=== PATIENT | male | born 1955 | race Caucasian/White ===

== ENCOUNTER 2018-01-18 06:26 | Day surgery (SDC) | payer BC, OTHER ==
[2018-01-18] MEDS ORDERED: Lactated Ringers 1,000 ML IV SCH ×2 (07:38→14:12)
[2018-01-18] MEDS ORDERED: Propofol 200 MG/20 ML SDV IV ONE (08:00)
--- NOTE | 2018-01-18 08:23 | PCM.OPNOTE ---
- General Post-Op/Procedure Note Date of Surgery/Procedure: 01/18/18 Operative Procedure(s): c scope with biospy Findings: transverse colon polyp Pre Op Diagnosis: screening c scope Post-Op Diagnosis: transverse colon polyp Anesthesia Technique: MAC Primary Surgeon: True Dao Anesthesia Provider: Ian Toussaint Pathology: transverse colon polyp Complications: None Condition: Good Free Text/Narrative:: see dictation
--- NOTE | 2018-01-18 08:36 | OR ---
DATE OF OPERATION: 01/18/2018 SURGEON: True Dao MD PROCEDURE PERFORMED: Colonoscopy. PREOPERATIVE DIAGNOSIS: Need for screening C-scope. POSTOPERATIVE DIAGNOSIS: Transverse colon polyp. INDICATIONS FOR PROCEDURE: This is a 62-year-old white male, referred for screening colonoscopy. He was offered and accepted same. DESCRIPTION OF OPERATION: After an excellent IV sedation was administered, digital rectal exam was performed. No marked abnormality was noted. Flexible colonoscope was inserted and advanced without difficulty to the cecum. Prep was excellent. The following findings were noted: Ascending colon, unremarkable. Transverse colon, a small hyperplastic-appearing lesion, biopsied with cold biopsy forceps and sent for permanent. Descending colon, unremarkable. Sigmoid, unremarkable. Rectum, unremarkable. Colon was deflated as the scope was removed. The patient tolerated the procedure well and was taken to the recovery room in good condition. Results by letter. /[id number] /MODL
== END 2018-01-18 09:15 | disposition home or self-care (01) ==
LOC: FB.SDS 06:26
PROVIDERS: ATTEND Surgery
DX: Z12.11 Encounter for screening for malignant neoplasm of colon (principal); D12.3 Benign neoplasm of transverse colon; I10 Essential (primary) hypertension; E11.9 Type 2 diabetes mellitus without complications; E66.01 Morbid (severe) obesity due to excess calories; Z68.34 Body mass index [BMI] 34.0-34.9, adult; Z79.84 Long term (current) use of oral hypoglycemic drugs; Z79.899 Other long term (current) drug therapy
CPT/HCPCS: 45380; 82962; 88305; J2704; J7120

== ENCOUNTER 2019-09-18 20:54 | Emergency (ER) | payer BC ==
[2019-09-18] MEDS ORDERED: Acetaminophen/HYDROcodone 325-5 MG Tab PO ONE (20:55)
--- NOTE | 2019-09-18 21:56 | EDM.PDOC ---
ED HPI GENERAL MEDICAL PROBLEM - General Chief Complaint: Flank Pain Stated Complaint: right lower back pain Time Seen by Provider: 09/18/19 21:52 Source of Information: Reports: Patient History Limitations: Reports: No Limitations - History of Present Illness INITIAL COMMENTS - FREE TEXT/NARRATIVE: Patient developed right lower back pain @1300 today associated with nausea and vomiting. He denies injury, prior h/o kidney stones or AAA. Pain worsened throughout the day, then significantly improved en route to the hospital. Onset Date: 09/18/19 Onset Time: 13:00 Location: Reports: Back Severity: Moderate right flank Pain Score (Numeric/FACES): 6 - Related Data Allergies Allergy/AdvReac Type Severity Reaction Status Date / Time No Known Allergies Allergy Verified 09/18/19 21:00 Home Meds: Home Meds Gabapentin [Neurontin] 300 mg PO BID 01/15/18 [History] Metoprolol Tartrate 100 mg PO DAILY 01/15/18 [History] Simvastatin 10 mg PO BEDTIME 01/15/18 [History] sitaGLIPtin Phos/Metformin HCl [Janumet 50-1,000 MG] 1 each PO BID 01/15/18 [ History] Acetaminophen/HYDROcodone [[place] 325-5 MG] 1 - 2 tab PO Q6H PRN #12 tab [Rx] Celecoxib 200 mg PO DAILY 09/18/19 [History] Tamsulosin [Tamsulosin 24 Hr] 0.4 mg PO DAILY #15 cap.er 09/18/19 [Rx] Past Medical History HEENT History: Reports: Impaired Vision, Other (See Below) Other HEENT History: 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 Cardiovascular History: Reports: High Cholesterol, Hypertension. Denies: Aneurysm Respiratory History: Reports: None Gastrointestinal History: Reports: None Genitourinary History: Reports: None CORRECTIONAL COOK History: Reports: None Neurological History: Reports: None Psychiatric History: Reports: Addiction, Other (See Below) Other Psychiatric History: ALCOHOLISM. CLAUSTROPHOBIA IF LAYS ON BACK. Endocrine/Metabolic History: Reports: Diabetes, Type II Dermatologic History: Reports: Other (See Below) Other Dermatologic History: CREAM USED FOR KELOIDS OF LEFT ARM. - Infectious Disease History Infectious Disease History: Reports: Chicken Pox, Measles, Mumps - Past Surgical History GI Surgical History: Reports: Colonoscopy Musculoskeletal Surgical History: Reports: Arthroscopic Knee Other Musculoskeletal Surgeries/Procedures:: RIGHT KNEE ARTHROSCOPY WITH MEDIAL MENISCETOMY,. RIGHT SHOULDER SUBACROMIAL SPACE DECOMPRESION. LEFT THIGH PAIN SINCE 2016 Social & Family History - Family History GI: Reports: None - Caffeine Use Caffeine Use: Reports: Coffee ED ROS GENERAL - Review of Systems Review Of Systems: Comprehensive ROS is negative, except as noted in HPI. : Reports: Urgency ED EXAM,LOWER BACK PAIN/INJURY - Physical Exam Exam: See Below Exam Limited By: No Limitations General Appearance: Alert, WD/WN, No Apparent Distress Throat/Mouth: No Airway Compromise Head: Atraumatic, Normocephalic Respiratory/Chest: No Respiratory Distress, Lungs Clear, Normal Breath Sounds Cardiovascular: Regular Rate, Rhythm, No Murmur GI/Abdominal: Normal Bowel Sounds, Soft, Non-Tender, No Distention Back Exam: Other (tenderness overlying right SI joint) Neurological: Alert, Normal Mood/Affect Psychiatric: Normal Affect, Normal Mood Skin Exam: Warm, Dry, Intact Course - Vital Signs Last Recorded V/S: Last Vital Signs Temp 36.3 C 09/18/19 20:55 Pulse 81 09/18/19 20:55 Resp 16 09/18/19 20:55 BP 187/95 H 09/18/19 20:55 Pulse Ox 99 09/18/19 20:55 - Orders/Labs/Meds Orders: Active Orders 24 hr Category Date Time Status Abdomen Pelvis wo Cont [CT] Stat Exams 09/18/19 21:51 Taken Sodium Chloride 0.9% [Normal Saline] 500 ml Med 09/18/19 23:12 Active IV .BOLUS Sodium Chloride 0.9% [Saline Flush] Med 09/18/19 22:35 Active 10 ml FLUSH ASDIRECTED PRN Saline Lock Insert [OM.PC] Routine Oth 09/18/19 22:35 Ordered Medication Orders Sodium Chloride (Normal Saline) 500 mls @ 999 mls/hr IV .BOLUS ONE Stop: 09/18/19 23:42 Last Admin: 09/18/19 23:15 Dose: 999 mls/hr Sodium Chloride (Saline Flush) 10 ml FLUSH ASDIRECTED PRN PRN Reason: Keep Vein Open Last Admin: 09/18/19 22:44 Dose: 10 ml Labs: Laboratory Tests 09/18/19 09/18/1920 Range/Units 22:00 22:00 22:04 WBC 12.8 H (4.5-12.0) X10-3/uL RBC 5.13 (4.30-5.75) x10(6)uL Hgb 16.0 (13.5-17.8) g/dL Hct 46.9 (30.0-51.3) % MCV 91.3 (80-96) fL MCH 31.2 (27.7-33.6) pg MCHC 34.1 (32.2-35.4) g/dL RDW 12.3 (11.5-15.5) % Plt Count 213 (125-369) X10(3)uL MPV 10.0 (7.4-10.4) fL Neut % (Auto) 86.1 H (46-82) % Lymph % (Auto) 8.8 L (13-37) % [place] % (Auto) 3.7 L (4-12) % Eos % (Auto) 1 (1.0-5.0) % Baso % (Auto) 1 (0-2) % Neut # (Auto) 11.0 H (1.6-8.3) # Lymph # (Auto) 1.1 (0.6-5.0) # [place] # (Auto) 0.5 (0.0-1.3) # Eos # (Auto) 0.1 (0.0-0.8) # Baso # (Auto) 0.1 (0.0-0.2) # Sodium 141 (135-145) mmol/L Potassium 4.2 (3.5-5.3) mmol/L Chloride 108 (100-110) mmol/L Carbon Dioxide 28 (21-32) mmol/L BUN 15 (7-18) mg/dL Creatinine 1.4 H (0.70-1.30) mg/dL Est Cr Clr Drug Dosing 54.01 mL/min Estimated GFR (MDRD) 51 L (>60) BUN/Creatinine Ratio 10.7 (9-20) Glucose 219 H (80-116) mg/dL Calcium 9.3 (8.6-10.2) mg/dL Total Bilirubin 0.6 (0.1-1.3) mg/dL AST 16 (5-25) IU/L ALT 25 (12-36) U/L Alkaline Phosphatase 60 (56-112) IU/L Total Protein 7.7 (6.0-8.0) g/dL Albumin 4.0 (3.2-4.6) g/dL Globulin 3.7 g/dL Albumin/Globulin Ratio 1.1 Urine Color Yellow (YELLOW) Urine Appearance Clear (CLEAR) Urine pH 5.0 (5.0-6.5) Ur Specific [place] 1.025 (1.010-1.025) Urine Protein Negative (NEGATIVE) mg/dL Urine Glucose (UA) >1000 H (NORMAL) mg/dL Urine Ketones Negative (NEGATIVE) mg/dL Urine Occult Blood Large H (NEGATIVE) Urine Nitrite Negative (NEGATIVE) Urine Bilirubin Negative (NEGATIVE) Urine Urobilinogen Normal (NEGATIVE) mg/dL Ur Leukocyte Esterase Negative (NEGATIVE) Urine RBC 0-5 (0-5) Urine WBC 0-5 (0-5) Ur Squamous Epith Cells Occasional (NS,R,O) Amorphous Sediment Few Urine Bacteria Rare H (NS) Meds: Medications Generic Name Dose Route Start Last Admin Trade Name Freq PRN Reason Stop Dose Admin Sodium Chloride 500 mls @ 999 mls/hr 09/18/19 23:12 09/18/19 23:15 Normal Saline IV 09/18/19 23:42 999 mls/hr .BOLUS ONE Administration Sodium Chloride 10 ml 09/18/19 22:35 09/18/19 22:44 Saline Flush FLUSH 10 ml ASDIRECTED PRN Administration Keep Vein Open Discontinued Medications Generic Name Dose Route Start Last Admin Trade Name Freq PRN Reason Stop Dose Admin Lorazepam 0.5 mg 09/18/19 22:35 09/18/19 22:44 Ativan IVPUSH 09/18/19 22:36 0.5 mg ONETIME ONE Administration Tamsulosin HCl 0.4 mg 09/18/19 23:13 09/18/19 23:20 Flomax PO 09/18/19 23:14 0.4 mg ONETIME ONE Administration - Radiology Interpretation Free Text/Narrative:: CT Abd/Pelvis w/o contrast: Mild right hydronephrosis and hydroureter secondary to a 2 mm stone in the distal right ureter. Left renal stone. Mild colonic diverticulosis. Cholelithiasis. Enlarged prostate gland. ([facility], Dr. Lazo) - Re-Assessments/Exams Free Text/Narrative Re-Assessment/Exam: 09/18/19 23:23 Patient required Ativan prior to CT secondary to claustrophobia. Departure - Departure Time of Disposition: 23:24 Disposition: Home, Self-Care 01 Condition: Good (ureterolithiasis) Clinical Impression: Ureterolithiasis - Discharge Information *PRESCRIPTION DRUG MONITORING PROGRAM REVIEWED*: Yes *COPY OF PRESCRIPTION DRUG MONITORING REPORT IN PATIENT MARIA A: No Prescriptions: Acetaminophen/HYDROcodone [[place] 325-5 MG] 1 - 2 tab PO Q6H PRN #12 tab PRN Reason: Pain Tamsulosin [Tamsulosin 24 Hr] 0.4 mg PO DAILY #15 cap.er Instructions: Kidney Stones, [id number] Referrals: Sienna Brand NP [Primary Care Provider] - 3 Days Forms: ED Department Discharge Additional Instructions: Fill the [place] and Flomax prescriptions and take as directed. Follow up with your primary physician in 2-3 days. Return to the ER if symptoms worsen. Sepsis Event Note - Evaluation Sepsis Screening Result: No Definite Risk - Focused Exam Vital Signs: Vital Signs Temp Pulse Resp BP Pulse Ox 09/18/19 20:55 36.3 C 81 16 187/95 H 99 Date Exam was Performed: 09/18/19 Time Exam was Performed: 23:21 - My Orders Last 24 Hours: My Active Orders 09/18/19 21:51 Abdomen Pelvis wo Cont [CT] Stat 09/18/19 22:35 Sodium Chloride 0.9% [Saline Flush] 10 ml FLUSH ASDIRECTED PRN Saline Lock Insert [OM.PC] Routine 09/18/19 23:12 Sodium Chloride 0.9% [Normal Saline] 500 ml IV .BOLUS - Assessment/Plan Last 24 Hours: My Active Orders 09/18/19 21:51 Abdomen Pelvis wo Cont [CT] Stat 09/18/19 22:35 Sodium Chloride 0.9% [Saline Flush] 10 ml FLUSH ASDIRECTED PRN Saline Lock Insert [OM.PC] Routine 09/18/19 23:12 Sodium Chloride 0.9% [Normal Saline] 500 ml IV .BOLUS
[2019-09-18] MEDS ORDERED: Sodium Chloride 0.9% 10 ML Syringe FLUSH PRN (22:35)
[2019-09-18] MEDS ORDERED: LORazepam 2 MG/ML SDV IVPUSH ONE (22:35)
[2019-09-18] MEDS ORDERED: Sodium Chloride 0.9% 500 ML IV ONE (23:12)
[2019-09-18] MEDS ORDERED: Tamsulosin 0.4 MG Cap.ER PO ONE (23:13)
== END 2019-09-18 23:48 | disposition home or self-care (01) ==
LOC: FB.ED 20:54
DX: N13.2 Hydronephrosis with renal and ureteral calculous obstruction (principal); E78.00 Pure hypercholesterolemia, unspecified; I10 Essential (primary) hypertension; E11.9 Type 2 diabetes mellitus without complications; Z79.84 Long term (current) use of oral hypoglycemic drugs; Z79.899 Other long term (current) drug therapy
CPT/HCPCS: 36415; 74176; 80053; 81001; 85025; 96374; 99284-25; A9270-GY; J2060; J7040

== ENCOUNTER 2023-09-04 07:19 | Day surgery (SDC) | payer BC, MEDICARE ==
[2023-09-04] MEDS ORDERED: fentaNYL 100 MCG/2 ML SDV IV ONE (07:20)
[2023-09-04] MEDS ORDERED: Midazolam 1 MG/ML 2 ML SDV IV ONE (07:20)
[2023-09-04] MEDS ORDERED: Propofol 200 MG/20 ML SDV IV ONE (07:20)
[2023-09-04] MEDS ORDERED: Sodium Chloride 0.9% 10 ML Syringe FLUSH PRN (07:30)
[2023-09-04] MEDS: Lactated Ringers 1,000 ML IV SCH (08:30)
[2023-09-04] MEDS: Simethicone Drops 40 MG/0.6 ML 30 ML Bottle PO ONE (09:06)
== END 2023-09-04 10:53 | disposition home or self-care (01) ==
LOC: FB.SDS 07:19
PROVIDERS: ATTEND Surgery
DX: Z12.11 Encounter for screening for malignant neoplasm of colon (principal); D12.6 Benign neoplasm of colon, unspecified; K62.1 Rectal polyp; I10 Essential (primary) hypertension; E11.9 Type 2 diabetes mellitus without complications; Z79.84 Long term (current) use of oral hypoglycemic drugs; Z79.899 Other long term (current) drug therapy
CPT/HCPCS: 00811; 45384; 45385; 82947; 88305; A9270; J2250; J2704; J3010; J7120